=== PATIENT | male | born 1945 | race Caucasian/White ===

== ENCOUNTER → 2022-07-21 13:17 | Outpatient (BNVA) | payer MEDICARE, SELFPAY | PROVIDERS: PCP Internal Medicine; Visit Provider Physician Assistant | DX: M48.061 Spinal stenosis, lumbar region without neurogenic claudication (principal) | CPT/HCPCS: 99212 ==

== ENCOUNTER 2022-09-06 13:19 | Outpatient (REF) | payer MEDICARE, SELFPAY | END 2022-09-06 13:20 | disposition home or self-care (01) | LOC: HO.LAB 13:19 | PROVIDERS: PCP Internal Medicine; Visit Provider Psychiatry & Neurology Neurology | DX: R25.1 Tremor, unspecified (principal) | CPT/HCPCS: 36415; 80178 ==